=== PATIENT | female | born 1965 | race Caucasian/White ===

== ENCOUNTER 2017-01-04 06:48 | Emergency (ER) | payer OTHER ==
[~2017-01-04] VITALS: Ht 165.1 cm; Wt 83.0 kg
[2017-01-04 07:03] VITALS: Ht 165.1 cm; Wt 83.0 kg
--- NOTE | 2017-01-04 07:53 | RADRPT ---
PROCEDURE: XR Foot. CLINICAL INDICATION: Pain TECHNIQUE: AP, lateral and oblique views of the left foot was obtained. The images were reviewed on a PACS workstation. COMPARISON: None. FINDINGS: The bones of the foot appear intact, with no evidence of fracture, dislocation, or subluxation. The joint spaces are preserved. The bone mineralization is normal. No significant soft tissue swelling is seen. RPTAT: AA IMPRESSION: Unremarkable left foot radiographs. Physician Raymundo Date Time Electronically viewed and signed by Physician Raymundo on 01/04/2017 07:52 RA/
[2017-01-04] MEDS ORDERED: IBUP-1542 PO (08:11)
--- NOTE | 2017-01-04 08:12 | ERD ---
ER Documentation Chief Complaint Date/Time DATE: 01/04/17 TIME: 08:11 Chief Complaint Complains of right foot pain x 2 weeks HPI This 51-year-old female complains of right foot pain for the last 2 weeks. Started after accidentally kicking something at home. Is improving but the pain returned after getting a massage. The pain is on the distal aspect of her fourth metatarsal or fourth toe area. There is no restricted range of motion or weakness or bleeding or lacerations or fevers. ROS All systems reviewed and are negative except as per history of present illness. Medications Home Meds Active Scripts Ibuprofen* (Motrin*) 600 Mg Tab, 600 MG PO Q6, #15 TAB Prov:NIKKIE GIMENEZ MD 01/04/17 Allergies Allergies: Coded Allergies: Penicillins (Verified Allergy, Intermediate, Hives, 01/04/17) PMhx/Soc Medical and Surgical Hx: pt denies Medical Hx, pt denies Surgical Hx Hx Alcohol Use: No Hx Substance Use: No Hx Tobacco Use: No Smoking Status: Never smoker Physical Exam Vitals Vital Signs Date Time Temp Pulse Resp B/P Pulse Ox O2 Delivery O2 Flow Rate FiO2 01/04/17 07:03 97.7 95 20 117/67 99 Physical Exam Const: [] Alert, [id number] per Head: Atraumatic Eyes: Normal Conjunctiva ENT: Normal External Ears, Nose and Mouth. Neck: Full range of motion..~ No meningismus. Resp: Clear to auscultation bilaterally Cardio: Regular rate and rhythm, no murmurs Abd: Soft, non tender, non distended. Normal bowel sounds Skin: No petechiae or rashes Back: No midline or flank tenderness Ext: No cyanosis, or edema. Tenderness in the right distal fourth metatarsal area. No restricted range of motion weakness or deficits no erythema or bleeding. Neur: Awake and alert Psych: Normal Mood and Affect Procedures/MDM X-ray Foot 3V Interpreted by me: Bones: [No fracture] Joints: [No dislocation] Foreign body: [None]. Impression-normal right foot Patient presents with right foot pain for last 2 weeks after mild trauma. There is no signs or symptoms of fracture, dislocation no signs of traction or deficits. She will be treated ibuprofen and further observation at home. She appears to have a contusion. The patient was stable with no new complaints during the ER course. Clinically, there is no current evidence to suggest meningitis, sepsis, acute abdomen, pneumonia, acute coronary syndrome, pulmonary embolism, or any other emergent condition appearing to require further evaluation or hospitalization. The patient should certainly return for any new or worsening symptoms per the aftercare instructions. They should otherwise follow-up with her primary care doctor for reevaluation this week. Departure Diagnosis: Primary Impression: Injury of foot Encounter type: initial encounter Laterality: right Qualified Code: S99.921A - Injury of foot, right, initial encounter Condition: Stable Patient Instructions: Contusion, Foot Additional Instructions: X-ray read as normal. Recheck with primary doctor or return for fevers, redness , new worsening symptoms NIKKIE GIMENEZ MD Jan 04, 2017 08:12
== END 2017-01-04 08:23 | disposition home or self-care (01) ==
LOC: FTE 06:48
DX: S99.921A Unspecified injury of right foot, initial encounter (principal); W22.8XXA Striking against or struck by other objects, initial encounter; Y92.009 Unspecified place in unspecified non-institutional (private) residence as the place of occurrence of the external cause
CPT/HCPCS: 73630